=== PATIENT | male | born 1990 | race Caucasian/White ===

== ENCOUNTER 2016-12-03 09:19 | Inpatient (IN) ==
[2016-12-03 09:48] LABS: BASOPHILS # (AUTO) 0.1 K/uL (0-0.2); EOSINOPHILS # (AUTO) 0.1 K/ul (0.0-0.7); EOSINOPHILS % (AUTO) 0.5 % (0.0-7.0); HEMATOCRIT 41.3 % (42.0-52.0); HEMOGLOBIN 14.7 g/dl (14.0-18.0); IMMATURE GRANULOCYTE % (AUTO) 0.2 % (0.0-5.0); LYMPHOCYTES # (AUTO) 2.2 K/uL (0.60-3.4); LYMPHOCYTES % (AUTO) 20.2 (10.0-50.0); MEAN CORPUSCULAR HEMOGLOBIN 30.9 pg (27.0-31.0); MEAN CORPUSCULAR HGB CONC 35.6 (31.8-35.4); MEAN CORPUSCULAR VOLUME 86.8 fl (80.0-94.0); MONOCYTES % (AUTO) 9.4 (0-10); NEUTROPHILS # (AUTO) 7.4 K/ul (2.0-6.9); NEUTROPHILS % (AUTO) 68.7; PLATELET COUNT 257 10^3/uL (140-440); RED BLOOD COUNT 4.76 10^6/ul (4.70-6.10); WHITE BLOOD COUNT 10.74 K/ul (4.2-10.2)
--- NOTE | 2016-12-03 09:49 | CT ---
EXAM: CT of the head without contrast History: Altered mental status. Technique: Multiplanar CT images through the head were obtained without the administration of IV co ntrast Findings: Mild mucosal thickening of the ethmoid air cells. No air-fluid levels seen within the si nuses. Mastoid air cells are generally clear. No acute calvarial abnormalities. Intracranially the ventricular and cisternal spaces are normal in size, shape and configuration for a patient of this age. No dominant mass or midline shift. No hydrocephalous. No acute intracrania l hemorrhage or abnormal extraaxial fluid collections. Impression: 1. No acute intracranial process. 2. Mild ethmoid sinus disease.
[2016-12-03 10:36] LABS: ALANINE AMINOTRANSFERASE 14 U/L (12-78); ALBUMIN 4.6 g/dL (3.4-5.0); ALBUMIN/GLOBULIN RATIO 1.44; ALKALINE PHOSPHATASE 60 U/L (50-136); ANION GAP 15.5; ASPARTATE AMINO TRANSFERASE 15 U/L (15-37); BILIRUBIN,TOTAL 0.77 mg/dL (0.00-1.20); BLOOD UREA NITROGEN 13 mg/dL (7-18); CALCIUM 9.6 mg/dL (8.2-10.2); CARBON DIOXIDE 26 mmol/L (21-32); CHLORIDE 99 mmol/L (98-107); CREATININE 1.04 mg/dL (0.60-1.10); GLUCOSE 95 mg/dL (70-100); POTASSIUM 3.5 mmol/L (3.5-5.1); SODIUM 137 mmol/L (136-145); TOTAL PROTEIN 7.8 g/dL (6.4-8.2)
[2016-12-03 10:58] LABS: BILIRUBIN,URINE 2+ (NEGATIVE); KETONES,URINE 1+ (NEGATIVE); LEUKOCYTE ESTERASE ,URINE Negative (NEGATIVE); NITRITE,URINE Negative (NEGATIVE); PH,URINE 5.5 (5-9); PROTEIN,URINE 1+ (NEGATIVE); URINE, BLOOD Negative (NEGATIVE)
[2016-12-03 10:59] LABS: ADD URINE MICROSCOPIC YES
[2016-12-03 11:13] LABS: COCAIN SCREEN,URINE NEGATIVE (NEGATIVE)
--- NOTE | 2016-12-03 12:49 | ED.PDOC ---
General Stated Complaint: brought in by police for hallucinations Time Seen by Physician: 09:25 Mode of Arrival: Walk-In Information Source: Patient, Police Exam Limitations: No limitations Nursing and Triage Documentation Reviewed and Agree: Yes <PURVI-ER,FERMIN - Last Filed: 12/03/16 12:47> <RAFFI CERNA - Last Filed: 12/04/16 06:34> ED Provider: Dr. RAFFI CERNA Chief Complaint: Psychiatric Complaint Psychological Complaint Exam - Psychiatric Complaint/Exam Patient Complains Of: Present: Other Onset/Duration: unknown Symptoms Are: Still present Timing: Constant Initial Severity: Mild Current Severity: Moderate Character: Present: Anxious. Absent: Manic, Depressed, Fearful, Angry, Frustrated Aggravating: Reports: Medication noncompliance Associated Signs And Symptoms: Reports: Confused, Hallucinating, Sleep disturbance. Denies: Hostile, Paranoid behavior, Appetite change Related History: Denies: Suicidal thoughts, Suicidal plan, Suicidal gestures, Homicidal thoughts, Homicidal plan, Homicidal gestures, Prior attempts, Recent stressors, Drug ingestion Completed Suicide Risk Factors: Male Patient In Custody Of Police: Yes Social Withdrawal Present: No Social Isolation Present: No Prior Suicide Attempt: No Injury From Prior Suicide Attempt: No Related Surgical History: Reports: None Patient Uncooperative For Exam: No Mood: Present: Hallucinating, Agitated, Anxious. Absent: Depressed, Angry, Guarded, Paranoid, Manic, Hearing voices Appearance: Present: Clean Thought Process: Present: Flight of ideas Insight: Present: Poor Memory: Intact Judgement: Impaired Danger To Others: No Patient Medically Stable For: Psych evaluation, Referral, Transfer Differential Diagnoses: Anxiety, Bipolar Disorder, Acute Psychosis <PURVI-ER,FERMIN - Last Filed: 12/03/16 12:47> Review of Systems - Review Of Systems Constitutional: Reports: No symptoms Eyes: Reports: No symptoms Ears, Nose, Mouth, Throat: Reports: No symptoms Respiratory: Reports: No symptoms Cardiac: Reports: No symptoms GI: Reports: No symptoms : Reports: No symptoms Musculoskeletal: Reports: No symptoms Skin: Reports: No symptoms Neurological: Reports: Emotional problems Endocrine: Reports: No symptoms Hematologic/Lymphatic: Reports: No symptoms All Other Systems: Reviewed and Negative <ANGELINAFERMIN - Last Filed: 12/03/16 12:47> Past Medical History - Past Medical History Previously Healthy: Yes Endocrine: Reports: Unknown Cardiovascular: Reports: Unknown Respiratory: Reports: Unknown Hematological: Reports: Unknown Gastrointestinal: Reports: Unknown Genitourinary: Reports: Unknown Neuro/Psych: Reports: Unknown Musculoskeletal: Reports: Unknown Cancer: Reports: Unknown - Surgical History General Surgical History: Reports: Unknown - Family History Family History: Reports: Unknown - Social History Smoking Status: Current every day smoker Hx Substance Use: Yes (OPIATES) Alcohol Screening: Occasionally Lives: With family <ANGELINAFERMIN Last Filed: 12/03/16 12:47> Physical Exam - Physical Exam Appearance: Well-appearing, No pain distress, Well-nourished Eyes: MARELNE, EOMI, Conjunctiva clear ENT: Ears normal, Nose normal, Oropharynx normal Neck: Supple Respiratory: Airway patent Cardiovascular: RRR, Pulses normal, No rub, No murmur GI/: Soft, Nontender, No masses, Bowel sounds normal, No Organomegaly Musculoskeletal: Normal strength, ROM intact, No edema, No calf tenderness Skin: Warm, Dry, Normal color Neurological: Alert, Alert to verbal, Alert to pain Psychiatric: Affect appropriate <ANGELINAFERMIN Last Filed: 12/03/16 12:47> Interpretation - Radiology Interpretation Radiology Interpretation By: Radiologist Radiology Results: Negative Exam Interpreted: CT Scan <ANGELINAFERMIN Last Filed: 12/03/16 12:47> Re-Evaluation - Re-Evaluation Time of Re-Evaluation: 22:08 Status: Improved (cooperative, occasionally needs redirection) Vital Signs Stable: Yes Appearance: NAD <RAFFI CERNA - Last Filed: 12/04/16 06:34> Physician Notification - Case Discussed Physician Notified: Dr Davenport Time of Notification: 22:10 (Ok to admit to floor one on one. ) <RAFFI CERNA - Last Filed: 12/04/16 06:34> Critical Care Note - Critical Care Note Total Time (mins): 0 <RAFFI CERNA Last Filed: 12/04/16 06:34> Course - Course Hematology/Chemistry: 12/03/16 09:40 12/03/16 09:40 <FERMIN ALFARO - Last Filed: 12/03/16 12:47> - Course Hematology/Chemistry: 12/03/16 09:40 12/03/16 09:40 <RAFFI ECRNA - Last Filed: 12/04/16 06:34> - Course Orders, Labs, Meds: Lab Review 12/03/16 12/03/16 09:40 10:50 WBC 10.74 H RBC 4.76 Hgb 14.7 Hct 41.3 L MCV 86.8 MCH 30.9 MCHC 35.6 H RDW Coeff of Tr 12.6 Plt Count 257 Immature Gran % (Auto) 0.2 Neut % (Auto) 68.7 Lymph % (Auto) 20.2 [place] % (Auto) 9.4 Eos % (Auto) 0.5 Baso % (Auto) 1.0 Immature Gran # (Auto) 0.0 Neut # 7.4 H Lymph # 2.2 Deuel # 1.0 Eos # 0.1 Baso # 0.1 Sodium 137 Potassium 3.5 Chloride 99 Carbon Dioxide 26 Anion Gap 15.5 BUN 13 Creatinine 1.04 Estimated GFR (MDRD) 86.00 BUN/Creatinine Ratio 12.50 Glucose 95 Calcium 9.6 Total Bilirubin 0.77 AST 15 ALT 14 Alkaline Phosphatase 60 Ammonia 30 Total Protein 7.8 Albumin 4.6 Globulin 3.2 Albumin/Globulin Ratio 1.44 TSH 1.897 Urine Color Dark Urine Clarity Clear Urine pH 5.5 Ur Specific [place] >=1.030 Urine Protein 1+ Urine Glucose (UA) Negative Urine Ketones 1+ Urine Blood Negative Urine Nitrite Negative Urine Bilirubin 2+ Urine Urobilinogen 1.0 Ur Leukocyte Esterase Negative Ur Squamous Epith Cells Not present Hyaline Casts 0-2 Urine Mucus 3+ Urine Opiates Screen Negative Ur Oxycodone Screen Negative Urine Methadone Screen Negative Ur Propoxyphene Screen Negative Ur Barbiturates Screen Negative U Tricyclic Antidepress Negative Ur Phencyclidine Scrn Negative Ur Amphetamine Screen Positive U Methamphetamines Scrn Negative U Benzodiazepines Scrn Positive Urine Cocaine Screen Negative U Cannabinoids Screen Negative Plasma/Serum Alcohol < 10.0 Orders Category Date Time Status ADMIT PATIENT INPATIENT .TO MEDSURG (NON-MONITORED ADMISSION 12/03/16 22: 09 Active BED) EKG-(ED ONLY) Stat CARDIO 12/03/16 09:22 Completed ACTIVITY .Early Mobilization for VTE Prevention CARE 12/03/16 22:15 Active CASE MANAGEMENT CONSULT ONCE CARE 12/03/16 22:09 Active INTAKE & OUTPUT Q8HR CARE 12/03/16 22:14 Active VITAL SIGNS Q4HR CARE 12/03/16 22:15 Active REGULAR DIET DIETARY 12/03/16 Breakfast Ordered AMMONIA Stat LAB 12/03/16 09:40 Completed BLOOD ALCOHOL Stat LAB 12/03/16 09:40 Completed BLOOD CULTURE Stat LAB 12/03/16 09:40 Received CBC W/ AUTO DIFF Stat LAB 12/03/16 09:40 Completed COMPREHENSIVE METABOLIC PANEL Stat LAB 12/03/16 09:40 Completed THYROID STIMULATING HORMONE Stat LAB 12/03/16 09:40 Completed URINALYSIS C & S IF INDICATED Stat LAB 12/03/16 10:50 Completed URINE DRUG SCREEN (RAPID FOR ED) [DRUG SCREEN, URINE, LAB 12/03/16 10:50 Completed RAPID] Stat Acetaminophen [Tylenol] MEDS 12/03/16 22:09 Ordered 650 mg PO Q4H PRN Alprazolam [Alprazolam] MEDS 12/04/16 09:00 Ordered 1 mg PO DAILY Buprenorphine HCl/Naloxone HCl [Suboxone 8 mg-2 mg Sl MEDS 12/04/16 09:00 Ordered Film] 1 film PO DAILY Enoxaparin Sodium [Lovenox] MEDS 12/04/16 09:00 Ordered 40 mg SUBCUT DAILY Haloperidol [Haldol] MEDS 12/03/16 22:18 Ordered 1 mg PO TID PRN Lisdexamfetamine Dimesylate [Vyvanse] MEDS 12/04/16 09:00 Ordered 50 mg PO DAILY Lorazepam [Ativan] MEDS 12/03/16 22:07 Discontinued 2 mg PO ONCE STA Nicotine 21 mg [Nicoderm 21 mg] MEDS 12/03/16 20:35 Discontinued 1 patch TD ONCE STA Ziprasidone Mesylate [Geodon] MEDS 12/03/16 21:52 Discontinued 10 mg IM ONCE STA RESUSCITATION STATUS Routine OTHERS 12/03/16 22:[address] HEAD W/O CONTRAST Stat RADS 12/03/16 09:23 Completed Medications Generic Name Dose Route Start Last Admin Trade Name Freq PRN Reason Stop Dose Admin Acetaminophen 650 mg 12/03/16 22:09 Tylenol PO Q4H PRN Analgesia Enoxaparin Sodium 40 mg 12/04/16 09:00 Lovenox SUBCUT DAILY VERONICA Haloperidol 1 mg 12/03/16 22:18 Haldol PO TID PRN Agitation Non-Formulary Medication 1 film 12/04/16 09:00 Buprenorphine Hcl/Naloxone Hcl [Suboxone 8 Mg-2 Mg Sl Film] PO DAILY VERONICA Non-Formulary Medication 1 mg 12/04/16 09:00 Alprazolam [Alprazolam] PO DAILY VERONICA Non-Formulary Medication 50 mg 12/04/16 09:00 Lisdexamfetamine Dimesylate [Vyvanse] PO DAILY VERONICA Discontinued Medications Generic Name Dose Route Start Last Admin Trade Name Nir PRN Reason Stop Dose Admin Lorazepam 2 mg 12/03/16 22:07 12/03/16 22:28 Ativan PO 12/03/16 22:08 2 mg ONCE STA Administration Nicotine 1 patch 12/03/16 20:35 12/03/16 20:47 Nicoderm 21 Mg TD 12/03/16 20:36 1 patch ONCE STA Administration Ziprasidone 10 mg 12/03/16 21:52 12/03/16 22:04 Geodon IM 12/03/16 21:53 10 mg ONCE STA Administration Vital Signs: Temp Pulse Resp BP Pulse Ox 12/03/16 18:16 83 16 102/66 98 12/03/16 09:19 98.0 F 100 H 16 125/82 99 Departure <FERMIN ALFARO - Last Filed: 12/03/16 12:47> - Departure Time of Disposition: 22:08 Pt referred to PMD for follow-up: Yes <RAFFI CERNA - Last Filed: 12/04/16 06:34> - Departure Disposition: ADMITTED INPATIENT Discharge Problem: Schizophrenia, acute Condition: Fair Allergies/Adverse Reactions: Allergies Unobtainable Allergy (Verified 12/03/16 22:17) PATIENT IS NOT PSYCHOLOGICALLY STABLE ENOUGH TO ANSWER QUESTIPS APPOPRIATELY. Home Medications: Ambulatory Orders Alprazolam 1 mg PO DAILY 12/03/16 Buprenorphine HCl/Naloxone HCl [Suboxone 8 mg-2 mg Sl Film] 1 film PO DAILY Lisdexamfetamine Dimesylate [Vyvanse] 50 mg PO DAILY 12/03/16
[2016-12-03] MEDS ORDERED: NICODERM 21 MG TD STA (20:35)
[2016-12-03] MEDS ORDERED: GEODON IM STA (21:52)
[2016-12-03] MEDS ORDERED: ATIVAN PO STA (22:07)
[2016-12-03] MEDS ORDERED: TYLENOL PO PRN (22:09)
[2016-12-03] MEDS ORDERED: HALDOL PO PRN (22:18)
[2016-12-03 23:45] VITALS: BMI 26.9
[2016-12-04] MEDS ORDERED: [UNRECOGNIZED DRUG - OTHER] PO SCH (09:00)
[2016-12-04] MEDS ORDERED: LISDEXAMFETAMINE DIMESYLATE 50 MG PO SCH (09:00)
[2016-12-04] MEDS ORDERED: NON-FORMULARY MEDICATION (Alprazolam [Alprazolam] 1 MG) PO SCH ×22 (09:00)
[2016-12-04] MEDS ORDERED: BUPRENORPHINE HCL PO SCH (09:00)
[2016-12-04] MEDS ORDERED: LOVENOX SUBCUT SCH (09:00)
[2016-12-04] MEDS ORDERED: XANAX PO SCH (09:00)
[2016-12-04] MEDS ORDERED: NALOXONE HCL PO SCH (09:00)
[2016-12-04] MEDS ORDERED: [UNRECOGNIZED DRUG - OTHER] SL SCH (09:45)
[2016-12-04] MEDS ORDERED: BUPRENORPHINE HCL SL SCH (09:45)
[2016-12-04] MEDS ORDERED: NALOXONE HCL SL SCH (09:45)
[2016-12-04 10:10] VITALS: BP 102/68; TEMP 98
[2016-12-04] MEDS ORDERED: GEODON IM STA (13:14)
--- NOTE | 2016-12-04 13:41 | DS ---
DATE OF SERVICE: 12/04/16 FINAL DIAGNOSIS: 1. Acute psychosis 2. Change in mental status 3. Possibly schizoaffective disorder 4. Substance use 5. ADHD, patient is on Suboxone DISCHARGE INSTRUCTIONS: Discharge the patient to [facility] MEDICATIONS AT DISCHARGE: None given only Ativan for agitation DIET INSTRUCTIONS: Regular ACTIVITY: As much tolerated SMOKING: Current smoker. DISEASE SPECIFIC EDUCATION: Substance and dependance and discussed with the patient. HOSPITAL COURSE: Mr. Steve Hung was admitted from the emergency room and was found behaving erratic not himself, flight of idea, flight of thoughts. He thinks that he is kind of on a mission where people are trying to stop him. The patient was brought to the emergency room by the police. Blood alcohol was less than 10 and urine drug screen was positive for amphetamines and Benzodiazepines. The patient was given a dose a Geodon which did really calm him down, slept good over night and today morning the patient is more calm and quite but communication has improved but the patient still has though process he thinks that he is on a mission to help people and spread peace all over the world and people are trying to stop him for which he came [facility] to here in [place] to hide by himself. I did have a talk with the patient's father who is in [place] on Vacation when we talked he did reveal that patient has been having problems for a couple of weeks and he was intended to talk to the family counselors but as a family left the [place] of the vacation and the patient was by himself and I think the symptoms got worse and the patient was on the road and passed the [place] and came to the [place] and where he was found with change in mental status states. At this given time the patient is still with hallucinations and he still thinks that he is on a mission and people are trying to stop him and he has to be in a safe place. For this reason the patient is being transferred to the [facility]. TIME SPENT: More than 70 minutes today. CORA
--- NOTE | 2016-12-04 13:47 | HP ---
DATE OF SERVICE: 12/03/16 CHIEF COMPLAINT: Change in mental status. HISTORY OF PRESENT ILLNESS: This is a 26-year-old male who was brought in by the police as he was having flight of ideas, thoughts and acting erratically. He says he left a special place and he has a special power to use. He came to visit his grandmother from [facility] and does not want to bother the family. He was roaming with alcohol in the hand. When the patient was brought to the emergency room, the patient was not oriented to time, place or person. Dr. Starkey saw the patient. White count was 10.74, BNP normal. Urine toxicology is less than 10, Benzo's positive, amphetamine positive. After initial evaluation, the patient was given Geodon to calm him down. After that, the patient was admitted to the hospital for neuro checks and inpatient treatment for acute change in mental status. REVIEW OF SYSTEMS: (very difficult to obtain but obtained from the patient as much as possible) CONSTITUTIONAL: No fever, no chills. HEENT: Normal. ENDOCRINE: No weight gain; no weight loss. CVS: No chest pain. No PND, no orthopnea. No shortness of breath. No PND, no orthopnea. RESPIRATORY: No cough, no congestion. No hemoptysis. GI: No nausea, no vomiting. No abdominal pain. No melena. : No hematuria. No polyuria. MUSCULOSKELETAL: No joint swelling. PROMOTIONS SPECIALIST: No headache. PSYCHIATRIC: Change in mental status. No history of mental illness noted before but the patient is on Xanax so we don't know the exact details. SKIN: Intact, no open lesions. PAST MEDICAL HISTORY: 1. ADHD 2. Depression 3. Anxiety 4. Substance use PAST SURGICAL HISTORY: None PERSONAL HISTORY: Nicotine use, alcohol use and substance use. FAMILY HISTORY: Not obtained. MEDICATIONS: (Home) 1. Suboxone 2. Vyvanse 3. Xanax ALLERGIES: NOT ABLE TO OBTAIN PHYSICAL EXAMINATION: V/S: BP 125/82, respiratory rate 16, heart rate 100, temperature 98.0. HEENT: Atraumatic, normocephalic. No scleral icterus. NECK: Supple. No JVD, no bruit. No lymphadenopathy. No thyromegaly. HEART: S1, S2 normal. No murmur. No cyanosis or clubbing. No ascites. LUNGS: Clear to auscultation. No rales or rhonchi. ABDOMEN: Soft, nontender. Bowel sounds are active. No CVA tenderness. No rigidity or guarding. EXTREMITIES: No cyanosis, clubbing or pedal edema. MUSCULOSKELETAL: Normal joints, no swelling. NEUROLOGIC: The patient is awake, alert but not completely oriented. Sleepy due to medication effect. SKIN: Intact; no open lesions. LYMPHATIC: No lymph nodes palpable. LABS: White count 10.74, hemoglobin 14.7, hematocrit 41.3, platelet count 257. Sodium 137, potassium 3.5, chloride 99, bicarb 26, BUN 13, creatinine 1.04. Toxicology : Benzo and amphetamine positive. ASSESSMENT: 1. ACUTE CHANGE IN MENTAL STATUS, PSYCOSIS VERSUS START OF SCHIZOPHRENIA OR SUBSTANCE USE 2. HISTORY OF ADHD 3. SUBSTANCE USE DISORDER PLAN: 1. Admit patient to the floor, one on one 2. IV fluids 3. Fall precautions 4. Lovenox for DVT prophylaxis 5. Ativan 2 mg q.2 to 4 hours p.r.n. TIME SPENT: More than 70 minutes MTDD
--- NOTE | 2016-12-04 13:48 | PN ---
DATE OF SERVICE: 12/04/16 SUBJECTIVE: The patient is more quiet and comfortable, lying in the bed and not in any distress. He is all smiling and giggling and says that he is doing fine. He knows that he is in the hospital but doesn't know why he is here. REVIEW OF SYSTEMS: CONSTITUTIONAL: No fever, no chills. HEENT: Normal. ENDOCRINE: No weight gain, no weight loss. CVS: No angina symptoms. No CHF symptoms. No palpitations. No atypical chest pain for CAD. No shortness of breath. No PND, no orthopnea. RESPIRATORY: No cough, no hemoptysis. GI: No nausea, no vomiting. No abdominal pain. : No hematuria. No polyuria. MUSCULOSKELETAL:. No joint swelling. PSYCHIATRIC: Not anxious. No depression. No suicidal thoughts. No homicidal thoughts. SKIN: Intact. No rash. PHYSICAL EXAMINATION: V/S: Blood pressure 102/68, respiratory rate 20, heart rate 95, temperature 98. HEENT: Normocephalic, atraumatic. Mucosa . NECK: Supple. No JVD, no carotid bruit. No lymphadenopathy. LUNGS: Clear to auscultation. No rales or rhonchi. HEART: S1, S2 normal. No S3. No murmur, gallop or regurgitation. ABDOMEN: Soft, nontender. Bowel sounds active. No rigidity. No rebound or guarding. No CVA tenderness. EXTREMITIES: No clubbing, cyanosis or pedal edema. MUSCULOSKELETAL: No joint swelling. NEUROLOGIC: Awake, alert, oriented times three. No focal deficit. LYMPHATIC: No lymph nodes palpable. SKIN: Intact. LABS: WBC 10.74, hgb 14.7, hct 41.3, plt count 257, sodium 137, potassium 3.5, chloride 99, bicarb 26, BUN 13, creatinine 1.04. Toxicology was positive for the amphetamine and Benzodiazepines. ASSESSMENT: 1. Acute change in mental status. 2. Psychosis 3. History of substance abuse disorder 4. ADHD PLAN: 1. Possible placement but we will try to get in touch with the family and see what was the patient's baseline and the problems Will follow the patient in daily rounds. TIME SPENT: More than 30 minutes MTDD
[2016-12-04] MEDS ORDERED: XANAX PO STA (14:02)
== END 2016-12-04 14:40 | DRG 885 ==
LOC: ED 09:19 → MEDSURG B 22:39
PROVIDERS: ADMIT Emergency Medicine; ATTEND Emergency Medicine
DX: F23 Brief psychotic disorder (principal); F90.9 Attention-deficit hyperactivity disorder, unspecified type; F17.200 Nicotine dependence, unspecified, uncomplicated; F11.90 Opioid use, unspecified, uncomplicated; F15.90 Other stimulant use, unspecified, uncomplicated; Z87.898 Personal history of other specified conditions; Z79.899 Other long term (current) drug therapy
CPT/HCPCS: 36415; 80053; 80306; 80307; 81001; 82140; 84443; 85025; 87040; 93005; 93010; 96372; 99284

== ENCOUNTER 2016-12-04 15:00 | Outpatient (CLI) ==
[2016-12-03 23:45] VITALS: BMI 26.9
== END 2016-12-04 15:01 ==
LOC: AMBL 15:00
PROVIDERS: ATTEND Internal Medicine
DX: R41.0 Disorientation, unspecified (principal); R44.3 Hallucinations, unspecified; F29 Unspecified psychosis not due to a substance or known physiological condition